=== PATIENT | male | born 1965 | race Caucasian/White ===

== ENCOUNTER 2023-06-09 10:49 | Emergency (ER) | payer OTHER, MEDICAID, SELFPAY ==
[2023-06-09] VITALS (15 sets, daily range): BP systolic 166–201; BP diastolic 84–105; PULSE 74–118; RESP 14–22; TEMP 36.8; O2SAT 91–97; BMI 32.1
[2023-06-09 11:18] LABS: Add Manual Diff / Slide Review NO; Basophils Absolute Auto 0 /uL (0-100); Basophils Percent Auto 0.3 % (0-2); Eosinophils Absolute Auto 100 /uL (0-450); Eosinophils Percent Auto 1.6 % (2-4); Hemoglobin 13.6 g/dL (13.5-17.5); Lymphocytes Absolute Auto 1000 /uL (1100-4500); Lymphocytes Percent Auto 17.3 % (25-40); Mean Corpuscular Hemoglobin 36.4 PG (26-34); Mean Corpuscular Volume 104.1 fL (80-100); Monocytes Absolute Auto 700 /uL (0-900); Monocytes Percent Auto 10.9 % (3-14); Neutrophils Absolute Auto 4200 /uL (1500-7000); Neutrophils Percent Auto 69.9 % (50-75); Platelet Count 82 X10^3/uL (150-400); Red Blood Cell Count 3.74 X10^6/uL (4.5-5.9); Red Cell Distribution Width 15.2 % (11.6-14.8)
[2023-06-09 11:22] LABS: INR 1.4 (0.9-1.3); Prothrombin Time 15.7 SECONDS (9.4-12.5)
[2023-06-09 11:29] LABS: Alanine Aminotransferase 57 IU/L (<50); Albumin 3.8 g/dL (3.5-5.0); Albumin Globulin Ratio 0.7 (1.0-2.8); Alkaline Phosphatase 184 U/L (38-126); Aspartate Aminotransferase 267 IU/L (17-59); BUN Creatinine Ratio 14.9 (6-22); Bilirubin Total 5.9 mg/dL (0.2-1.3); Blood Urea Nitrogen 10 mg/dL (9-20); Calcium 8.5 mg/dL (8.4-10.2); Carbon Dioxide 25 mmol/L (22-32); Chloride 105 mmol/L (98-107); Estimated Glomerular Filt Rate > 60 mL/min (>60); Globulin 5.8 g/dL (1.7-4.1); Glucose 139 mg/dL (70-100); Lipase 447 U/L (23-300); Sodium 141 mmol/L (137-145); Total Protein 9.6 g/dL (6.3-8.2)
[2023-06-09 11:33] LABS: HEMOLYSIS 84 (0-50); Potassium 4.1 mmol/L (3.4-5.1)
--- NOTE | 2023-06-09 11:42 | ED.ABDPAIN ---
HPI - Abdominal Pain General Chief Complaint: Abdominal Pain Stated Complaint: abd problems sent by pcp Time Seen by Provider: 06/09/23 11:27 Source: patient and family Mode of arrival: Ambulatory History of Present Illness HPI narrative: This is a 58-year-old male with chronic alcohol use who presents with complaint of swelling of his belly for the past 2 weeks although he states he really noticed the past several days it is very tight and uncomfortable. Patient denies fevers or chills. No swelling of face or extremities. He denies any chest pain or pressure, no shortness of breath. Denies any nausea or vomiting. States he has been little bit constipated for the past 2 days, no black or bloody stools. No urinary symptoms. Patient is not on any daily prescriptions, no prior surgeries. No known drug allergies. Quit tobacco a year ago, does drink at least 3 alcoholic drinks daily and was drinking more until recently. No recreational drugs. Is not established with primary care physician. Lives on [facility] for the past 6 months. Patient is accompanied by his . Patient states he does not believe he is immunized for hepatitis, he denies any regular Tylenol use or other ingestions. Related Data Home Medications Medication Instructions Recorded Confirmed No Known Home Medications 06/10/23 06/10/23 Allergies Allergy/AdvReac Type Severity Reaction Status Date / Time No Known Drug Allergies Allergy Verified 06/10/23 07:35 Review of Systems Review of Systems ROS Unobtainable: All systems reviewed & are unremarkable except as noted in HPI and below Patient History Medical History (Updated 06/10/23 @ 17:23 by Katey Foster PA-C) Allergies Substance abuse Depression Cirrhosis Alcohol use Anxiety Tachycardia Hypertension Social History Smoking Status: Former smoker (Chewed tobacco, but quit in 2022. ) Smoking Status: Former smoker alcohol intake frequency: 3 or more drinks per day Alcohol type: hard liquor Substance Use Type: does not use Exam Narrative Exam Narrative: GENERAL: Alert and oriented x three, male in mild distress. Patient appears jaundiced. HEENT: Head normocephalic, atraumatic, EOMI, slight scleral icterus, eyes are bloodshot, pupils reactive, face symmetric, moist mucous membranes NECK: Supple, full range of motion CARDIOVASCULAR: Regular rate and rhythm without murmurs, rubs or gallops. RESPIRATORY: Breath sounds equal bilaterally, no wheezes rales or rhonchi. ABDOMEN: Soft, nontender, patient is quite distended with fluid wave.. Normoactive bowel sounds all 4 quadrants. No guarding or rebound, rigidity, no mass : No CVA tenderness EXTREMITIES: Normal range of motion, no clubbing, no edema. Neurovascularly intact NEUROLOGICAL: Cranial nerves II through XII grossly intact. Moving all extremities SKIN: Warm, dry, no petechiae, no rashes or lesions. Initial Vital Signs Initial Vital Signs: Vital Signs Pulse Oximetry 92 06/09/23 10:55 Course Orders Ordered: Discontinued Medications Ondansetron HCl (Ondansetron 4 Mg Odt) 4 mg PO NOW PRN PRN Reason: Nausea And Vomiting Ondansetron HCl (Ondansetron 4 Mg/2 Ml Inj) 4 mg IV NOW PRN PRN Reason: Nausea And Vomiting Vital Signs Vital signs: Vital Signs - 8 hr 06/09/23 10:55 06/09/23 10:56 06/09/23 10:56 Temperature Pulse Rate 117 H Respiratory Rate Blood Pressure 166/105 H Pulse Oximetry 92 95 Oxygen Delivery Method 06/09/23 11:00 06/09/23 11:01 06/09/23 11:30 Temperature 98.3 F Pulse Rate 113 H 118 H 101 H Respiratory Rate 14 22 Blood Pressure 166/105 H Pulse Oximetry 96 95 95 Oxygen Delivery Method Room Air 06/09/23 11:30 06/09/23 12:00 06/09/23 12:00 Temperature Pulse Rate 100 H Respiratory Rate Blood Pressure 185/104 H 173/99 H Pulse Oximetry 96 Oxygen Delivery Method 06/09/23 12:34 06/09/23 12:35 06/09/23 12:35 Temperature Pulse Rate 99 H 101 H Respiratory Rate Blood Pressure 179/103 H Pulse Oximetry 91 97 Oxygen Delivery Method 06/09/23 13:00 06/09/23 13:00 Temperature Pulse Rate 99 H Respiratory Rate Blood Pressure 185/94 H Pulse Oximetry 96 Oxygen Delivery Method MDM - Abdominal Pain Lab Data 06/09/23 11:05 06/09/23 11:05 Labs: Lab Results 06/09/23 Range/Units 11:05 WBC 6.0 (4.5-11.0) X10^3/uL RBC 3.74 L (4.5-5.9) X10^6/uL Hgb 13.6 (13.5-17.5) g/dL Hct 39.0 L (41-53) % MCV 104.1 H (80-100) fL MCH 36.4 H (26-34) PG MCHC 35.0 (30-36) % RDW 15.2 H (11.6-14.8) % Plt Count 82 L (150-400) X10^3/uL Neut % (Auto) 69.9 (50-75) % Lymph % (Auto) 17.3 L (25-40) % Hunt % (Auto) 10.9 (3-14) % Eos % (Auto) 1.6 L (2-4) % Baso % (Auto) 0.3 (0-2) % Neut # (Auto) 4200 (6218-4789) /uL Lymph # (Auto) 1000 L (6680-7454) /uL Hunt # (Auto) 700 (0-900) /uL Eos # (Auto) 100 (0-450) /uL Baso # (Auto) 0 (0-100) /uL PT 15.7 H (9.4-12.5) SECONDS INR 1.4 H (0.9-1.3) Sodium 141 (137-145) mmol/L Potassium 4.1 (3.4-5.1) mmol/L Chloride 105 (98-107) mmol/L Carbon Dioxide 25 (22-32) mmol/L BUN 10 (9-20) mg/dL Creatinine 0.67 (0.66-1.25) mg/dL Estimated GFR > 60 (>60) mL/min BUN/Creatinine Ratio 14.9 (6-22) Glucose 139 H (70-100) mg/dL Calcium 8.5 (8.4-10.2) mg/dL Total Bilirubin 5.9 H (0.2-1.3) mg/dL AST 267 H (17-59) IU/L ALT 57 H (<50) IU/L Alkaline Phosphatase 184 H (38-126) U/L Total Protein 9.6 H (6.3-8.2) g/dL Albumin 3.8 (3.5-5.0) g/dL Globulin 5.8 H (1.7-4.1) g/dL Albumin/Globulin Ratio 0.7 L (1.0-2.8) Lipase 447 H (23-300) U/L Acetaminophen < 10 (10-30) ug/mL Ethyl Alcohol 190 H ( - 10) mg/dL Hepatitis A IgM Ab Negative (Negative) Hep Bs Antigen Negative (Negative) Hep B Core IgM Ab Negative (Negative) Hepatitis C Antibody Non reactive (Non Reactive) Hep C Ab Signal/Cutoff Comment (.) Imaging Data Abdominal x-ray: Radiologist's Impression: [facility] , XRay Report Signed Patient: Twin Petty MR#: [id number] : 1965 Acct:[id number] Age/Sex: 58 / M Date of Service: 06/08/23 [facility] Accession Number: [id number] Procedure: XR abdomen 1V Ordering Provider: Katey Foster P.A-C PROCEDURE: XR ABDOMEN 1V INDICATIONS: Bloating TECHNIQUE: One view of the abdomen acquired. COMPARISON: None. FINDINGS: Surgical changes and devices: None. Bowel: Bowel gas pattern is normal. Normal colonic stool load. Soft tissues: No suspicious abdominal calcifications. Visualized solid organ contours appear normal in size. Bones: No suspicious bony lesions. IMPRESSION: No acute abnormality. Dictated by: Fercho Petty M.D. on 06/08/2023 at 15:49 Approved by: Fercho Petty M.D. on 06/08/2023 at 15:49 CT scan - abdomen/pelvis: Radiologist's Impression: [place] [address] CT Scan Report Signed Patient: Twin Petty MR#: [id number] : 1965 Acct:[id number] Age/Sex: 58 / M Date of Service: 06/09/23 Loc: ED Accession Number: [id number] Procedure: CT abdomen pelvis w con Ordering Provider: Emily Martines D.O. PROCEDURE: CT ABDOMEN PELVIS W CON INDICATIONS: ascites, liver failure, no prior diagnosis TECHNIQUE: After the administration of intravenous contrast, axial sections acquired from the lung bases to the pubic symphysis. Coronal and sagittal reformats were performed. For radiation dose reduction, the following was used: automated exposure control, adjustment of mA and/or kV according to patient size. COMPARISON: None. FINDINGS: Image quality: Diagnostic. Lower Chest: Right lower lobe linear subsegmental atelectasis/scar. Left lower lobe compressive atelectasis. Small left pleural effusion. Partially visualized marked three-vessel coronary calcifications. ABDOMEN: Liver: Cirrhotic liver morphology with nodular contour. Heterogeneous appearance of the parenchyma with innumerable tiny hypodensities. Patent portal vein. Gallbladder: No radiopaque gallstones or wall thickening. Biliary ducts: No biliary dilation. Pancreas: No ductal dilation. Spleen: Mild splenomegaly measuring 14.6 cm in craniocaudal dimension. Adrenal Glands: No adrenal nodules. Kidneys and Ureters: No hydronephrosis. No solid mass. No complex renal cystic lesion which requires follow up. Stomach and Bowel: No hiatal hernia. Stomach appears grossly normal. Small and large bowel is normal in caliber, without obstruction. Wall thickening of the colon, notably in the ascending colon (2/71). Peritoneum: Moderate volume ascites. No free air. Ventral Wall: No significant ventral hernia. Abdominal Nodes: No retroperitoneal or mesenteric adenopathy by size criteria. Vessels: Aorta and inferior vena cava are normal in size. Patent splenic, bilateral renal and iliac vein. Mild calcification of the abdominal aorta. Proximal mesenteric vessels are patent. Recanalized paraumbilical vein and a few perigastric and perisplenic venous collaterals. PELVIS: Pelvic Organs: Unremarkable. Bladder: No bladder wall thickening, accounting for underdistention. Pelvic Nodes: No enlarged lymph nodes. Miscellaneous: Small bilateral fat containing inguinal hernias. Bones: No aggressive osseous abnormality. No acute fractures. IMPRESSION: 1. Cirrhotic liver morphology with stigmata of portal hypertension including splenomegaly, upper abdominal varices and moderate volume ascites. 2. Hepatic parenchyma demonstrates heterogeneous appearance with innumerable tiny hypodensities. Differential includes micronodular cirrhosis versus infiltrative malignancy. Recommend correlation with AFP and an MRI (liver mass protocol) for further evaluation. 3. Nonobstructive bowel. Colonic wall thickening, notably in the ascending colon, suggestive of portal hypertensive colopathy. 4. Small left pleural effusion with compressive atelectasis. 5. Partially visualized marked three-vessel coronary calcifications. Dictated by: Thomas Coleman M.D. on 06/09/2023 at 13:57 Approved by: Thomas Coleman M.D. on 06/09/2023 at 14:04 ECG Data Attestation: I personally reviewed and interpreted this ECG as follows: Prior ECG tracings: not available for review Interpretation: Sinus rhythm rate of 100 FL 156 QRS 88 QTC of 474. No acute ST elevation or depression noted. No priors for comparison. MDM Narrative Medical decision making narrative: This is a 58-year-old with chronic alcohol use who has a exam consistent with liver failure. Lab workup shows white count of 6, hemoglobin of 13.6, platelets of 82, patient's INR is 1.4. Creatinine is normal at 0.67 with a BUN of 10, glucose is 139 sodium is 141 with potassium of 4.1, chloride of 105 and a CO2 of 25. Bilirubin is elevated at 5.9, AST is 267, ALT is 57 with alk-phos of 184, lipase of 447. Patient had abdominal x-ray on [facility] which was negative. MELD score of 17 points with 6% mortality Patient also had hepatitis panel added on which will not be completed today as well as alcohol and Tylenol level. Plan suspect alcohol is the main source of his cirrhosis but patient states he was never immunized her hepatitis does not sound like he has ever had any evaluation for it. CT abdomen pelvis was obtained shows cirrhotic liver morphology with nodular contour heterogeneous appearance with innumerable tiny hypodensities and patent portal vein. Mild splenomegaly measuring 14.6 0.6 cm in craniocaudal dimension. Patient has stigmata of portal hypertension including splenomegaly upper abdominal varices and moderate volume ascites. Colonic wall thickening notably ascending colon suggestive of portal hypertensive colopathy. Small left pleural effusions with a compressive atelectasis. Partially visualized three-vessel coronary calcifications. Discussed with patient and family need for follow-up, alcohol sensation, resources . EMPLOYMENT SUPERVISOR offered to help with follow-up/primary care and resources for alcohol sensation. Reviewed findings with patient and family, need for follow up. Discharge Plan Departure Patient Disposition: Home Clinical Impression: Cirrhosis Qualifiers: Hepatic cirrhosis type: unspecified hepatic cirrhosis Ascites presence: with ascites Qualified Code(s): K74.60 - Unspecified cirrhosis of liver Instructions: DI for Cirrhosis Activity Restrictions/Additional Instructions: Follow up with primary care and Gastroenterology. Contact for Gastroenterology is included below. You can follow up with anyone from the group. Your imaging does show cirrhotic changes in a moderate amount of fluid or ascites but also shows some small spots this means follow up with an alpha fetoprotein and further evaluation with Gastroenterology. Alcohol cessation is the most helpful thing you can do to decrease/stop damage to your liver. Avoid Tylenol or acetaminophen. You do have a hepatitis panel still pendingand afp pending this needs to be followed up. They may wish to get an MR of your liver in the future. Please return for fevers, abdominal pain or chest pain, shortness of breath, passing out, increasing swelling in your extremities or other new or concerning changes. Prescriptions: No Action No Known Home Medications Referrals: Trevin Frye MD [Non-Staff] - Katey Foster PA-C [Primary Care Provider] - Stand Alone Forms: Patient Portal/API
--- NOTE | 2023-06-09 12:00 | DI.CT.S_ITS ---
PROCEDURE: CT ABDOMEN PELVIS W CON INDICATIONS: ascites, liver failure, no prior diagnosis TECHNIQUE: After the administration of intravenous contrast, axial sections acquired from the lung bases to the pubic symphysis. Coronal and sagittal reformats were performed. For radiation dose reduction, the following was used: automated exposure control, adjustment of mA and/or kV according to patient size. COMPARISON: None. FINDINGS: Image quality: Diagnostic. Lower Chest: Right lower lobe linear subsegmental atelectasis/scar. Left lower lobe compressive atelectasis. Small left pleural effusion. Partially visualized marked three-vessel coronary calcifications. ABDOMEN: Liver: Cirrhotic liver morphology with nodular contour. Heterogeneous appearance of the parenchyma with innumerable tiny hypodensities. Patent portal vein. Gallbladder: No radiopaque gallstones or wall thickening. Biliary ducts: No biliary dilation. Pancreas: No ductal dilation. Spleen: Mild splenomegaly measuring 14.6 cm in craniocaudal dimension. Adrenal Glands: No adrenal nodules. Kidneys and Ureters: No hydronephrosis. No solid mass. No complex renal cystic lesion which requires follow up. Stomach and Bowel: No hiatal hernia. Stomach appears grossly normal. Small and large bowel is normal in caliber, without obstruction. Wall thickening of the colon, notably in the ascending colon (2/71). Peritoneum: Moderate volume ascites. No free air. Ventral Wall: No significant ventral hernia. Abdominal Nodes: No retroperitoneal or mesenteric adenopathy by size criteria. Vessels: Aorta and inferior vena cava are normal in size. Patent splenic, bilateral renal and iliac vein. Mild calcification of the abdominal aorta. Proximal mesenteric vessels are patent. Recanalized paraumbilical vein and a few perigastric and perisplenic venous collaterals. PELVIS: Pelvic Organs: Unremarkable. Bladder: No bladder wall thickening, accounting for underdistention. Pelvic Nodes: No enlarged lymph nodes. Miscellaneous: Small bilateral fat containing inguinal hernias. Bones: No aggressive osseous abnormality. No acute fractures. IMPRESSION: 1. Cirrhotic liver morphology with stigmata of portal hypertension including splenomegaly, upper abdominal varices and moderate volume ascites. 2. Hepatic parenchyma demonstrates heterogeneous appearance with innumerable tiny hypodensities. Differential includes micronodular cirrhosis versus infiltrative malignancy. Recommend correlation with AFP and an MRI (liver mass protocol) for further evaluation. 3. Nonobstructive bowel. Colonic wall thickening, notably in the ascending colon, suggestive of portal hypertensive colopathy. 4. Small left pleural effusion with compressive atelectasis. 5. Partially visualized marked three-vessel coronary calcifications. Dictated by: Thomas Coleman M.D. on 06/09/2023 at 13:57 Approved by: Thomas Coleman M.D. on 06/09/2023 at 14:04
[2023-06-09 12:13] LABS: Acetaminophen < 10 ug/mL (10-30); Ethanol (ETOH) 190 mg/dL
--- NOTE | 2023-06-09 15:10 | CM.SWNOTE ---
ED [employer]BLE INSTALLER Note Pt is a 58 y/o male who live son [facility] w/ his partner. Pt presents to the ed at the recommendation of his PCP for ABD pain and distention. Pt and partner both report to being a heavy alcohol users. Pt's partner (Shefali) was in the room w/ pt during interaction. Pt reports that he typically has his first drink between 2-4 pm and that this is a small vodka soda about 1/3 vodka to soda. Pt reports that it is a small Yeti tumbler that they use w/ large ice cubes inside. Pt reports that he first began drinking and experimenting w/ drugs when he was 14 w/ his brother. It's stupid now but I thought it was cool back then. Pt reported that he has severe anxiety and that vodka is the only thing that helps. It's the only thing I can do.. I've been prescribed anxiety meds that take 2 to 3 weeks to kick in and it makes it worse. Pt reports that he has seen a therapist in the past. They just hash up old shit. Pt, partner, and TI[employer] INSTALLER discussed other therapy/counseling options that could be a better fit. Pt and partner agreed to look into a therapist. Both pt and partner are open to reducing drinking. I can cut back but I don't have to stop.. I don't want AA or any groups. Pt's partner is supportive of making changes and establishing a therapist via telehealth. TILE AND MARBLE INSTALLER provided pt w/ mental health resources that accept his insurance. TILE AND MARBLE INSTALLER also provided [facility] resources. TILE AND MARBLE INSTALLER attempted to set up a ED follow up appointment but space at [facility] was not available. Nurse from [facility] to call pt directly to set up an appointment. Plan: Pt to d/c home w/ resources upon medical clearance. Flex Meza MSW, KANWAL
[2023-06-11 05:21] LABS: HBsAg Screen Negative (Negative); Hepatitis A Antibody IgM Negative (Negative); Hepatitis B Core Antibody IgM Negative (Negative); Hepatitis C Antibody Non Reactive (Non Reactive)
== END 2023-06-09 15:26 | disposition home or self-care (01) ==
PROVIDERS: Emergency Provider Emergency Medicine; PCP Physician Assistant Medical
DX: K70.31 Alcoholic cirrhosis of liver with ascites (principal)
CPT/HCPCS: 36415; 74177; 80053; 80074; 80320; 80329; 83690; 85025; 85610; 93005; 93010; 99283; 99284; G0480; Q9967

== ENCOUNTER → 2023-09-21 08:47 | Outpatient (CLI) | payer OTHER, MEDICAID, SELFPAY ==
[2023-09-21 19:49] LABS: Alanine Aminotransferase 22 IU/L (<50); Albumin 3.2 g/dL (3.5-5.0); Albumin Globulin Ratio 0.7 (1.0-2.8); Alkaline Phosphatase 124 U/L (38-126); Aspartate Aminotransferase 49 IU/L (17-59); BUN Creatinine Ratio 14.8 (6-22); Bilirubin Total 1.6 mg/dL (0.2-1.3); Blood Urea Nitrogen 12 mg/dL (9-20); Calcium 8.8 mg/dL (8.4-10.2); Carbon Dioxide 25 mmol/L (22-32); Chloride 109 mmol/L (98-107); Estimated Glomerular Filt Rate > 60 mL/min (>60); Gamma Glutamyl Transpeptidase 108 U/L (15-73); Globulin 4.4 g/dL (1.7-4.1); Glucose 122 mg/dL (70-100); HEMOLYSIS < 15 (0-50); Potassium 4.1 mmol/L (3.4-5.1); Sodium 139 mmol/L (137-145); Total Protein 7.6 g/dL (6.3-8.2)
[2023-09-21 19:54] LABS: Ammonia (NH3) 34 umol/L (9-30)
[2023-09-21 20:16] LABS: Add Manual Diff / Slide Review NO; Basophils Absolute Auto 100 /uL (0-100); Basophils Percent Auto 1.7 % (0-2); Eosinophils Absolute Auto 600 /uL (0-450); Eosinophils Percent Auto 8.7 % (2-4); Hematocrit 36.1 % (41-53); Hemoglobin 12.4 g/dL (13.5-17.5); Lymphocytes Absolute Auto 1700 /uL (1100-4500); Lymphocytes Percent Auto 25.7 % (25-40); Mean Corpuscular HGB Conc 34.4 % (30-36); Mean Corpuscular Hemoglobin 34.7 PG (26-34); Monocytes Absolute Auto 700 /uL (0-900); Monocytes Percent Auto 10.8 % (3-14); Neutrophils Absolute Auto 3400 /uL (1500-7000); Neutrophils Percent Auto 53.1 % (50-75); Platelet Count 105 X10^3/uL (150-400); Red Blood Cell Count 3.58 X10^6/uL (4.5-5.9); Red Cell Distribution Width 14.5 % (11.6-14.8); White Blood Cell Count 6.5 X10^3/uL (4.5-11.0)
[2023-09-21 20:26] LABS: TSH w/ Reflex to FT4 1.71 uIU/mL (0.47-4.68)
== END ==
PROVIDERS: PCP Physician Assistant Medical; Referring Provider Physician Assistant Medical; Visit Provider Physician Assistant Medical
DX: K74.60 Unspecified cirrhosis of liver (principal); T78.40XA Allergy, unspecified, initial encounter; I10 Essential (primary) hypertension; Z78.9 Other specified health status
CPT/HCPCS: 80053; 82140; 82977; 84443; 85025

== ENCOUNTER → 2023-12-08 15:23 | Outpatient (CLI) | payer OTHER, MEDICAID, SELFPAY | PROVIDERS: PCP Physician Assistant Medical; Visit Provider Physician Assistant Medical | DX: R21 Rash and other nonspecific skin eruption (principal) | CPT/HCPCS: 87070; 87075; 87205 ==

== ENCOUNTER 2025-01-31 04:24 | Emergency (ER) | payer OTHER, SELFPAY ==
[2025-01-31] VITALS (18 sets, daily range): BP systolic 167–207; BP diastolic 80–107; PULSE 91–112; RESP 11–24; TEMP 36.9; O2SAT 94–99; BMI 29.5
--- NOTE | 2025-01-31 04:35 | ED_ITS ---
HPI - General Adult
--- NOTE | 2025-01-31 04:35 | ED.GENADULT ---
HPI - General Adult General Chief complaint: Back Pain/Injury Stated complaint: Lower back pain Time Seen by Provider: 01/31/25 04:35 History of Present Illness HPI narrative: 60-year-old male with history of alcohol use, cirrhosis, anxiety, depression, gallstones, has low back pain for the last few days. Has regular lifting as part of his job but no specific injury or new activities recalled. No numbness or weakness to his legs. No history of IVDU, known cancers, spinal surgery, spinal injections. Some nausea without vomiting, no black or red stools or loose stools. Denies fevers or chills. Denies painful or frequent urination.Denies cough, chest pain, shortness of breath. Related Data Previous Rx's ?Medication ?Instructions ?Recorded ciprofloxacin HCl 500 mg tablet 500 mg PO BID 10 days #20 tabs 01/31/25 metronidazole 500 mg tablet 500 mg PO TID #30 tabs 01/31/25 oxycodone 5 mg capsule 5 mg PO TID PRN pain #10 caps 01/31/25 Allergies Allergy/AdvReac Type Severity Reaction Status Date / Time No Known Drug Allergies Allergy Verified 01/31/25 04:32 Patient History Medical History Cirrhosis Allergies Substance abuse Depression Anxiety Tachycardia Hypertension Social History Smoking Status: Never smoker alcohol intake frequency: 3 or more drinks per day Alcohol type: hard liquor Exam Narrative Exam Narrative: GENERAL: Well-developed patient, in mild distress. HEAD: Atraumatic. Normocephalic. EYES: Pupils equal round and reactive. Extraocular motions intact. No scleral icterus. No injection or drainage. ENT: Nose without bleeding, purulent drainage. Throat without erythema, tonsillar hypertrophy or exudate. Airway patent. NECK: Trachea midline. Non tender CARDIOVASCULAR: Regular rate and rhythm without murmurs, gallops, or rubs. RESPIRATORY: Clear to auscultation. Breath sounds equal bilaterally. No wheezes, rales, or rhonchi. GASTROINTESTINAL: Abdomen soft, non-tender, nondistended. EXTREMITIES: No edema or joint tenderness. BACK: Nontender without deformity or crepitance. No flank tenderness. No midline low back pain in area of discomfort. No skin changes redness swelling or vesicles. NEURO: AOx3. Motor functions grossly nonfocal. SKIN: No rash or erythema of visible areas Initial Vital Signs Initial Vital Signs: Vital Signs Temperature 98.4 F 01/31/25 04:33 Pulse Rate 100 H 01/31/25 04:33 Respiratory Rate 17 01/31/25 04:33 Blood Pressure 189/95 H 01/31/25 04:33 Pulse Oximetry 97 01/31/25 04:33 Oxygen Delivery Method Room Air 01/31/25 04:33 Course Orders Ordered: ED Orders 01/31/25 08:25 Complete Blood Count AUTO DIFF Stat Comprehensive Metabolic Panel Stat Lipase Stat PTT Partial Thromboplastin Edwin Stat Prothrombin Time INR Stat Type and Screen Stat 01/31/25 08:29 EKG-12 Lead Stat Discontinued Medications Diazepam (Diazepam 10 Mg/2 Ml Syringe) 5 mg IV NOW ONE Stop: 01/31/25 04:47 Last Admin: 01/31/25 05:00 Dose: 5 mg Documented By: Hydromorphone HCl (Hydromorphone Hcl 0.5 Mg/0.5 Ml Syringe) 0.5 mg IV NOW ONE Stop: 01/31/25 07:15 Last Admin: 01/31/25 07:20 Dose: 0.5 mg Documented By: ERICK Ciprofloxacin (Cipro) 400 mg in 200 mls @ 200 mls/hr IV NOW ONE Stop: 01/31/25 07:13 Last Infusion: 01/31/25 07:34 Dose: Infused Documented By: Admin: 01/31/25 06:34 Dose: 200 mls/hr Documented By: Sodium Chloride (Normal Saline 0.9%) 1,000 mls @ 1,000 mls/hr IV BOLUS ONE Stop: 01/31/25 07:39 Last Infusion: 01/31/25 08:00 Dose: Infused Documented By: Admin: 01/31/25 07:19 Dose: 1,000 mls/hr Documented By: ERICK Pantoprazole Sodium 80 mg/ (Sodium Chloride) 100 mls @ 400 mls/hr IV NOW ONE Stop: 01/31/25 08:43 Last Infusion: 01/31/25 09:36 Dose: Infused Documented By: Admin: 01/31/25 09:05 Dose: 400 mls/hr Documented By: SBF Octreotide Acetate 500 mcg/ (Sodium Chloride) 101 mls @ 10.1 mls/hr IV CONT DEEPA; Protocol Last Admin: 01/31/25 09:05 Dose: 50 mcg/hr, 10.1 mls/hr Documented By: SBF Sodium Chloride (Normal Saline 0.9%) 1,000 mls @ 1,000 mls/hr IV BOLUS ONE Stop: 01/31/25 09:28 Last Infusion: 01/31/25 11:33 Dose: Infused Documented By: Admin: 01/31/25 09:26 Dose: 1,000 mls/hr Documented By: SBF Tranexamic Acid 1,000 mg/ (Sodium Chloride) 100 mls @ 200 mls/hr IV NOW ONE Stop: 01/31/25 10:55 Last Infusion: 01/31/25 11:32 Dose: Infused Documented By: Admin: 01/31/25 10:40 Dose: 200 mls/hr Documented By: SBF Sodium Chloride (Normal Saline 0.9%) 1,000 mls @ 250 mls/hr IV CONT DEEPA Methocarbamol (Methocarbamol 500 Mg Tablet) 500 mg PO NOW ONE Stop: 01/31/25 06:15 Last Admin: 01/31/25 06:22 Dose: Not Given Documented By: AB Metoclopramide HCl (Metoclopramide 10 Mg/2 Ml Inj) 10 mg IV NOW ONE Stop: 01/31/25 10:24 Last Admin: 01/31/25 10:35 Dose: 10 mg Documented By: SBF Metronidazole (Metronidazole 500 Mg Tablet) 500 mg PO NOW ONE Stop: 01/31/25 06:17 Last Admin: 01/31/25 06:34 Dose: 500 mg Documented By: AB Octreotide Acetate (Octreotide 100 Mcg/Ml Vial) 50 mcg IV NOW ONE Stop: 01/31/25 08:30 Last Admin: 01/31/25 09:06 Dose: 50 mcg Documented By: SBF Ondansetron HCl (Ondansetron 4 Mg/2 Ml Inj) 4 mg IV NOW ONE Stop: 01/31/25 07:15 Last Admin: 01/31/25 07:19 Dose: 4 mg Documented By: SGF Ondansetron HCl (Ondansetron 4 Mg/2 Ml Inj) 4 mg IV NOW ONE Stop: 01/31/25 08:31 Last Admin: 01/31/25 12:40 Dose: 4 mg Documented By: AUSTINF Vital Signs Vital signs: Vital Signs - 8 hr 01/31/25 07:30 01/31/25 07:30 01/31/25 08:00 Pulse Rate 103 H 98 H Respiratory Rate Blood Pressure 185/88 H Pulse Oximetry 94 95 01/31/25 08:00 01/31/25 08:30 01/31/25 08:30 Pulse Rate 101 H Respiratory Rate 15 Blood Pressure 180/84 H 167/84 H Pulse Oximetry 96 01/31/25 09:00 01/31/25 09:00 01/31/25 09:30 Pulse Rate 96 H 91 H Respiratory Rate 16 15 Blood Pressure 173/81 H Pulse Oximetry 96 99 01/31/25 09:30 01/31/25 10:00 01/31/25 10:00 Pulse Rate 97 H Respiratory Rate 16 Blood Pressure 177/82 H 174/82 H Pulse Oximetry 98 01/31/25 10:29 01/31/25 10:29 01/31/25 10:30 Pulse Rate 112 H 109 H Respiratory Rate 24 17 Blood Pressure 207/107 H Pulse Oximetry 98 98 01/31/25 10:30 01/31/25 10:35 01/31/25 10:35 Pulse Rate 107 H Respiratory Rate 18 Blood Pressure 198/96 H 188/92 H Pulse Oximetry 98 01/31/25 11:00 01/31/25 11:00 01/31/25 11:30 Pulse Rate 101 H 102 H Respiratory Rate 18 15 Blood Pressure 184/95 H Pulse Oximetry 96 97 01/31/25 11:30 01/31/25 12:00 01/31/25 12:00 Pulse Rate 104 H Respiratory Rate 16 Blood Pressure 179/100 H 191/94 H Pulse Oximetry 96 01/31/25 12:17 01/31/25 12:17 01/31/25 12:30 Pulse Rate 104 H 102 H Respiratory Rate 18 11 L Blood Pressure 173/104 H Pulse Oximetry 96 97 01/31/25 12:30 Pulse Rate Respiratory Rate Blood Pressure 182/97 H Pulse Oximetry Medical Decision Making Lab Data Lab results reviewed: Yes I reviewed the patient's lab results. Lab results narrative: White blood cell count 4600, hemoglobin 12.4, platelets 44785 mildly decreased. Glucose 124. Normal renal function, serum CO2, electrolytes. Mild AST elevation, other liver functions normal. Lipase normal. Urine dip positive for ketones, not obvious for infection. 01/31/25 08:25 01/31/25 08:25 Labs: Lab Results 01/31/25 01/31/25 Range/Units 04:57 08:25 WBC 4.6 7.3 D (4.5-11.0) X10^3/uL RBC 3.83 L 3.86 L (4.5-5.9) X10^6/uL Hgb 12.4 L 12.6 L (13.5-17.5) g/dL Hct 36.5 L 37.3 L (41-53) % MCV 95.1 96.5 (80-100) fL MCH 32.4 32.7 (26-34) PG MCHC 34.1 33.9 (30-36) % RDW 13.8 13.9 (11.6-14.8) % Plt Count 86 L 109 L (150-400) X10^3/uL Neut % (Auto) 49.4 L 41.1 L (50-75) % Lymph % (Auto) 37.3 46.4 H (25-40) % Bland % (Auto) 8.6 8.7 (3-14) % Eos % (Auto) 3.8 2.8 (2-4) % Baso % (Auto) 0.9 1.0 (0-2) % Neut # (Auto) 2300 3000 (0096-7195) /uL Lymph # (Auto) 1700 3400 (5229-7522) /uL Bland # (Auto) 400 600 (0-900) /uL Eos # (Auto) 200 200 (0-450) /uL Baso # (Auto) 0 100 (0-100) /uL PT 14.7 H 14.1 H (9.4-12.5) SECONDS INR 1.3 1.2 (0.9-1.3) APTT 30 (25.1-36.5) SECONDS Sodium 140 141 (137-145) mmol/L Potassium 4.3 3.7 (3.4-5.1) mmol/L Chloride 108 H 109 H (98-107) mmol/L Carbon Dioxide 25 21 L (22-32) mmol/L BUN 20 20 (9-20) mg/dL Creatinine 0.65 L 0.63 L (0.66-1.25) mg/dL Estimated GFR > 60 > 60 (>60) mL/min BUN/Creatinine Ratio 30.8 H 31.7 H (6-22) Glucose 124 H 116 H (70-99) mg/dL Calcium 8.6 8.4 (8.4-10.2) mg/dL Total Bilirubin 1.2 1.6 H (0.2-1.3) mg/dL AST 65 H 64 H (17-59) IU/L ALT 33 34 (<50) IU/L Alkaline Phosphatase 87 91 (38-126) U/L Total Protein 7.7 7.9 (6.3-8.2) g/dL Albumin 4.0 4.0 (3.5-5.0) g/dL Globulin 3.7 3.9 (1.7-4.1) g/dL Albumin/Globulin Ratio 1.1 1.0 (1.0-2.8) Lipase 116 131 (23-300) U/L Blood Type A Positive Antibody Screen Negative Urine Dip Bedside Urine Glucose Negative Bedside Urine Bilirubin - Negative Bedside Urine Ketone + 15 Urine Specific [place] 1.015 Bedside Urine Occult Blood +/- Bedside Urine pH 6.0 Bedside Urine Protein - Negative Bedside Urine Urobilinogen +/- 1mg Bedside Urine Nitrite - Negative Bedside Urine Leukocytes - Negative Esterase Point of care testing: Urine Dip Bedside Urine Glucose Negative Bedside Urine Bilirubin - Negative Bedside Urine Ketone + 15 Urine Specific [place]ellen 1.015 Bedside Urine Occult Blood +/- Bedside Urine pH 6.0 Bedside Urine Protein - Negative Bedside Urine Urobilinogen +/- 1mg Bedside Urine Nitrite - Negative Bedside Urine Leukocytes - Negative Esterase [facility] Narrative Medical decision making narrative: 60-year-old male with history of anxiety, depression, alcohol use, cirrhosis, gallstones, with nontraumatic low back pain, frequent lifting at work but no specific injury or new activities or increase in lifting or twisting activities. Midline low back pain. DDx consider compression vertebral body fracture, called strain lumbar, referred pain from abdominopelvic process, other. Labs pending. Patient we would like muscle relaxants. We will avoid NSAIDs, we will avoid IV Tylenol, he is reluctant to try opiates. Would like to try IV Valium when suggested as muscle relaxant. IV Valium order. Labs pending. Lab data: 0615, CT abdomen and pelvis. Impressions: ?cholelithiasis with mild gallbladder wall thickening and pericholecystic fatty haziness, concerning for developing acute cholecystitis, recommend gallbladder ultrasound. Mural thickening of ascending colon segment above ileocecal valve with the adjacent mild fatty stranding, concern for acute colitis, recommend follow up to ensure resolution and to exclude underlying lesion. Cirrhotic liver with suggestive of portal hypertension, heterogeneous attenuation of liver parenchyma could be related to cirrhosis, hepatic lesion needs to be excluded, recommend outpatient liver MRI. See tele radiology report. Ascending colitis described on CT abdomen/pelvis, will start IV ciprofloxacin with oral metronidazole antibiotic coverage. Thickening and fluid suspected around gallbladder, with cholelithiasis, patient without obvious right upper quadrant discomfort or right flank pain area discomfort, we will further delineate with right upper quadrant ultrasound. Sono tech verbal report, gallstones present, not obviously thickened and without obvious fluid. Sono tech verbal report, await Radiology report. Ultrasound gallbladder, gallstones present, no gallbladder wall thickening or fluid present. See radiology report. 0700, Trial of outpatient treatment colitis with further antibiotics ciprofloxacin and Flagyl. Patient encouraged to avoid alcohol due to emesis side effect with metronidazole/Flagyl. Prescription for ciprofloxacin and Flagyl 10 day course sent to his pharmacy. Encouraged to follow up with his regular doctor in the next couple of days. Return precautions discussed. Discharged home with . Discharge Plan Departure Patient Disposition: [facility] Clinical Impression: Colitis, Cholelithiasis, Low back pain, Esophageal varices, Hematemesis Activity Restrictions/Additional Instructions: Low back pain without tenderness on examination, possibly referred pain from abdominopelvic process. CT abdomen and pelvis was performed, showed colitis of the ascending colon, with that might be the cause of referred pain to the back. IV and oral antibiotics initiated. There was some CT mention of possible gallstones with thickened gallbladder and pericholecystic fluid, ultrasound was advised. Ultrasound did confirm the presence of gallstones, but did not seem to show any thickening of the gallbladder wall, nor any pericholecystic fluid suggestive of acute infection of the gallbladder at this time. Further treatment as an outpatient for now, consider further ciprofloxacin metronidazole antibiotic, 10 day course prescription sent to your requested pharmacy. It is important to avoid any alcohol use with metronidazole, as this combination can induce vomiting. Oxycodone prescription without Tylenol (for avoidance of Tylenol/acetaminophen due to your cirrhosis history). Recheck advised with your regular doctor in the next couple of days. Return to this/nearest emergency department for any change worsening symptoms or any concerns prior. Gallstones known, not obviously cause of your low back pain today, could consider outpatient surgical consultation if surgical removal of the gallbladder is desired in the future. Discuss further with your regular doctor. Prescriptions: New ciprofloxacin HCl 500 mg tablet 500 mg PO BID 10 Days Qty: 20 0RF metronidazole 500 mg tablet 500 mg PO TID Qty: 30 0RF oxycodone 5 mg capsule 5 mg PO TID PRN (Reason: pain) Qty: 10 0RF Referrals: Sheeba Lora DO [Primary Care Provider, Family Practice] Stand Alone Forms: Patient Portal/API
--- NOTE | 2025-01-31 04:47 | DI.CT.S_ITS ---
PROCEDURE: CT ABDOMEN PELVIS W CON
[2025-01-31 05:02] LABS: Add Manual Diff / Slide Review NO; Hematocrit 36.5 % (41-53); Hemoglobin 12.4 g/dL (13.5-17.5); Lymphocytes Absolute Auto 1700 /uL (1100-4500); Mean Corpuscular HGB Conc 34.1 % (30-36); Mean Corpuscular Hemoglobin 32.4 PG (26-34); Mean Corpuscular Volume 95.1 fL (80-100); Platelet Count 86 X10^3/uL (150-400)
[2025-01-31 05:20] LABS: INR 1.3 (0.9-1.3); Prothrombin Time 14.7 SECONDS (9.4-12.5)
[2025-01-31 05:24] LABS: Alanine Aminotransferase 33 IU/L (<50); Albumin 4.0 g/dL (3.5-5.0); Albumin Globulin Ratio 1.1 (1.0-2.8); Alkaline Phosphatase 87 U/L (38-126); Blood Urea Nitrogen 20 mg/dL (9-20); Calcium 8.6 mg/dL (8.4-10.2); Carbon Dioxide 25 mmol/L (22-32); Chloride 108 mmol/L (98-107); Estimated Glomerular Filt Rate > 60 mL/min (>60); Globulin 3.7 g/dL (1.7-4.1); Glucose 124 mg/dL (70-99); HEMOLYSIS < 15 (0-50); Lipase 116 U/L (23-300); Potassium 4.3 mmol/L (3.4-5.1); Sodium 140 mmol/L (137-145); Total Protein 7.7 g/dL (6.3-8.2)
--- NOTE | 2025-01-31 06:21 | DI.US.S_ITS ---
PROCEDURE: US ABDOMEN LIMITED
[2025-01-31] MEDS: CIPROFLOXACIN 400 MG/200 ML PIGGYBACK 200 MG IV (06:34)
[2025-01-31] MEDS: SODIUM CHLORIDE 0.9% 1,000 ML 1000 ML IV ×2 (07:19→09:26)
[2025-01-31] MEDS: ONDANSETRON 4 MG/2 ML INJ IV ×2 (07:19→12:40)
--- NOTE | 2025-01-31 08:29 | ED_ITS ---
HPI - General Adult
--- NOTE | 2025-01-31 08:29 | EKG_ITS ---
[facility]
--- NOTE | 2025-01-31 08:29 | PC.NURSE ---
after pt discharge pt ambulated to bathroom in er with - pt began vomiting large dark red clots in moderate quantity - provider made aware and patient taken to room - iv restarted and new labs sent pt reports having bleeding from varices 2-3 months ago
--- NOTE | 2025-01-31 08:29 | ED.GENADULT ---
HPI - General Adult General Chief complaint: Back Pain/Injury Stated complaint: Lower back pain Time Seen by Provider: 01/31/25 04:35 Source: patient and old records reviewed Mode of arrival: Ambulatory Limitations: no limitations History of Present Illness HPI narrative: 60-year-old male with a history of alcohol use, cirrhosis, known varices, anxiety, depression and gallstones who was seen here tonight for low back pain. Was discharged home but was in the bathroom when he threw up bright red blood and clots. He states he was not having any bloody emesis before this. He states last time he had that happened was about 3 months ago. He is feeling sweaty he denies chest pain or shortness of breath he denies any syncope or dizziness currently. He denies any abdominal pain. Still has a little bit of low back pain. Denies any black or bloody stools recently no diarrhea or constipation. No urinary symptoms. He states that he has taken aspirin for the last 3 days but does not normally take any anticoagulants. Patient states he is not on any daily medications. He states he has not had any prior surgeries he has had an EGD but never had banding of his varices. Patient does follow up with Gastroenterology at [facility]. He denies any allergies to medications. He denies tobacco, does drink alcohol, denies any recreational drugs. Dr. Lora is his primary care physician. He is accompanied by his . Related Data Previous Rx's ?Medication ?Instructions ?Recorded ciprofloxacin HCl 500 mg tablet 500 mg PO BID 10 days #20 tabs 01/31/25 metronidazole 500 mg tablet 500 mg PO TID #30 tabs 01/31/25 oxycodone 5 mg capsule 5 mg PO TID PRN pain #10 caps 01/31/25 Allergies Allergy/AdvReac Type Severity Reaction Status Date / Time No Known Drug Allergies Allergy Verified 01/31/25 04:32 Review of Systems Review of Systems ROS Unobtainable: All systems reviewed & are unremarkable except as noted in HPI and below Patient History Medical History Cirrhosis Allergies Substance abuse Depression Anxiety Tachycardia Hypertension Social History Smoking Status: Never smoker Smoking Status: Never smoker alcohol intake frequency: 3 or more drinks per day Alcohol type: hard liquor Exam Narrative Exam Narrative: GENERAL: Alert and oriented x three, diaphoretic male in moderate distress HEENT: Head normocephalic, atraumatic, EOMI, pupils reactive, face symmetric, moist mucous membranes NECK: Supple, full range of motion CARDIOVASCULAR: Tachycardic but Regular rate and rhythm without murmurs, rubs or gallops. No JVD. No edema. RESPIRATORY: Breath sounds equal bilaterally, no wheezes rales or rhonchi. No tachypnea accessory muscle use. ABDOMEN: Soft, nontender. Nondistended. Normoactive bowel sounds all 4 quadrants. No guarding or rebound, rigidity, no mass : No CVA tenderness EXTREMITIES: Normal range of motion, no clubbing or edema. Neurovascularly intact NEUROLOGICAL: Cranial nerves II through XII grossly intact. Moving all extremities SKIN: Warm, dry, no petechiae, no rashes or lesions. Initial Vital Signs Initial Vital Signs: Vital Signs Temperature 98.4 F 01/31/25 04:33 Pulse Rate 100 H 01/31/25 04:33 Respiratory Rate 17 01/31/25 04:33 Blood Pressure 189/95 H 01/31/25 04:33 Pulse Oximetry 97 01/31/25 04:33 Oxygen Delivery Method Room Air 01/31/25 04:33 Course Orders Ordered: Discontinued Medications Diazepam (Diazepam 10 Mg/2 Ml Syringe) 5 mg IV NOW ONE Stop: 01/31/25 04:47 Last Admin: 01/31/25 05:00 Dose: 5 mg Documented By: AB Hydromorphone HCl (Hydromorphone Hcl 0.5 Mg/0.5 Ml Syringe) 0.5 mg IV NOW ONE Stop: 01/31/25 07:15 Last Admin: 01/31/25 07:20 Dose: 0.5 mg Documented By: SGF Ciprofloxacin (Cipro) 400 mg in 200 mls @ 200 mls/hr IV NOW ONE Stop: 01/31/25 07:13 Last Infusion: 01/31/25 07:34 Dose: Infused Documented By: Admin: 01/31/25 06:34 Dose: 200 mls/hr Documented By: AB Sodium Chloride (Normal Saline 0.9%) 1,000 mls @ 1,000 mls/hr IV BOLUS ONE Stop: 01/31/25 07:39 Last Infusion: 01/31/25 08:00 Dose: Infused Documented By: Admin: 01/31/25 07:19 Dose: 1,000 mls/hr Documented By: SGF Pantoprazole Sodium 80 mg/ (Sodium Chloride) 100 mls @ 400 mls/hr IV NOW ONE Stop: 01/31/25 08:43 Last Infusion: 01/31/25 09:36 Dose: Infused Documented By: Admin: 01/31/25 09:05 Dose: 400 mls/hr Documented By: SBF Octreotide Acetate 500 mcg/ (Sodium Chloride) 101 mls @ 10.1 mls/hr IV CONT DEEPA; Protocol Last Admin: 01/31/25 09:05 Dose: 50 mcg/hr, 10.1 mls/hr Documented By: SBF Sodium Chloride (Normal Saline 0.9%) 1,000 mls @ 1,000 mls/hr IV BOLUS ONE Stop: 01/31/25 09:28 Last Infusion: 01/31/25 11:33 Dose: Infused Documented By: Admin: 01/31/25 09:26 Dose: 1,000 mls/hr Documented By: SBF Tranexamic Acid 1,000 mg/ (Sodium Chloride) 100 mls @ 200 mls/hr IV NOW ONE Stop: 01/31/25 10:55 Last Infusion: 01/31/25 11:32 Dose: Infused Documented By: Admin: 01/31/25 10:40 Dose: 200 mls/hr Documented By: SBF Sodium Chloride (Normal Saline 0.9%) 1,000 mls @ 250 mls/hr IV CONT DEEPA Methocarbamol (Methocarbamol 500 Mg Tablet) 500 mg PO NOW ONE Stop: 01/31/25 06:15 Last Admin: 01/31/25 06:22 Dose: Not Given Documented By: AB Metoclopramide HCl (Metoclopramide 10 Mg/2 Ml Inj) 10 mg IV NOW ONE Stop: 01/31/25 10:24 Last Admin: 01/31/25 10:35 Dose: 10 mg Documented By: SBF Metronidazole (Metronidazole 500 Mg Tablet) 500 mg PO NOW ONE Stop: 01/31/25 06:17 Last Admin: 01/31/25 06:34 Dose: 500 mg Documented By: AB Octreotide Acetate (Octreotide 100 Mcg/Ml Vial) 50 mcg IV NOW ONE Stop: 01/31/25 08:30 Last Admin: 01/31/25 09:06 Dose: 50 mcg Documented By: SBF Ondansetron HCl (Ondansetron 4 Mg/2 Ml Inj) 4 mg IV NOW ONE Stop: 01/31/25 07:15 Last Admin: 01/31/25 07:19 Dose: 4 mg Documented By: SGF Ondansetron HCl (Ondansetron 4 Mg/2 Ml Inj) 4 mg IV NOW ONE Stop: 01/31/25 08:31 Last Admin: 01/31/25 12:40 Dose: 4 mg Documented By: SBF Vital Signs Vital signs: Vital Signs - 8 hr 01/31/25 10:35 01/31/25 10:35 01/31/25 11:00 Pulse Rate 107 H Respiratory Rate 18 Blood Pressure 188/92 H 184/95 H Pulse Oximetry 98 01/31/25 11:00 01/31/25 11:30 01/31/25 11:30 Pulse Rate 101 H 102 H Respiratory Rate 18 15 Blood Pressure 179/100 H Pulse Oximetry 96 97 01/31/25 12:00 01/31/25 12:00 01/31/25 12:17 Pulse Rate 104 H 104 H Respiratory Rate 16 18 Blood Pressure 191/94 H Pulse Oximetry 96 96 01/31/25 12:17 01/31/25 12:30 01/31/25 12:30 Pulse Rate 102 H Respiratory Rate 11 L Blood Pressure 173/104 H 182/97 H Pulse Oximetry 97 Medical Decision Making Lab Data 01/31/25 08:25 01/31/25 08:25 Labs: Lab Results 01/31/25 01/31/25 Range/Units 04:57 08:25 WBC 4.6 7.3 D (4.5-11.0) X10^3/uL RBC 3.83 L 3.86 L (4.5-5.9) X10^6/uL Hgb 12.4 L 12.6 L (13.5-17.5) g/dL Hct 36.5 L 37.3 L (41-53) % MCV 95.1 96.5 (80-100) fL MCH 32.4 32.7 (26-34) PG MCHC 34.1 33.9 (30-36) % RDW 13.8 13.9 (11.6-14.8) % Plt Count 86 L 109 L (150-400) X10^3/uL Neut % (Auto) 49.4 L 41.1 L (50-75) % Lymph % (Auto) 37.3 46.4 H (25-40) % [place] % (Auto) 8.6 8.7 (3-14) % Eos % (Auto) 3.8 2.8 (2-4) % Baso % (Auto) 0.9 1.0 (0-2) % Neut # (Auto) 2300 3000 (6991-3606) /uL Lymph # (Auto) 1700 3400 (0324-6085) /uL [place] # (Auto) 400 600 (0-900) /uL Eos # (Auto) 200 200 (0-450) /uL Baso # (Auto) 0 100 (0-100) /uL PT 14.7 H 14.1 H (9.4-12.5) SECONDS INR 1.3 1.2 (0.9-1.3) APTT 30 (25.1-36.5) SECONDS Sodium 140 141 (137-145) mmol/L Potassium 4.3 3.7 (3.4-5.1) mmol/L Chloride 108 H 109 H (98-107) mmol/L Carbon Dioxide 25 21 L (22-32) mmol/L BUN 20 20 (9-20) mg/dL Creatinine 0.65 L 0.63 L (0.66-1.25) mg/dL Estimated GFR > 60 > 60 (>60) mL/min BUN/Creatinine Ratio 30.8 H 31.7 H (6-22) Glucose 124 H 116 H (70-99) mg/dL Calcium 8.6 8.4 (8.4-10.2) mg/dL Total Bilirubin 1.2 1.6 H (0.2-1.3) mg/dL AST 65 H 64 H (17-59) IU/L ALT 33 34 (<50) IU/L Alkaline Phosphatase 87 91 (38-126) U/L Total Protein 7.7 7.9 (6.3-8.2) g/dL Albumin 4.0 4.0 (3.5-5.0) g/dL Globulin 3.7 3.9 (1.7-4.1) g/dL Albumin/Globulin Ratio 1.1 1.0 (1.0-2.8) Lipase 116 131 (23-300) U/L Blood Type A Positive Antibody Screen Negative Urine Dip Bedside Urine Glucose Negative Bedside Urine Bilirubin - Negative Bedside Urine Ketone + 15 Urine Specific [place] 1.015 Bedside Urine Occult Blood +/- Bedside Urine pH 6.0 Bedside Urine Protein - Negative Bedside Urine Urobilinogen +/- 1mg Bedside Urine Nitrite - Negative Bedside Urine Leukocytes - Negative Esterase Point of care testing: Urine Dip Bedside Urine Glucose Negative Bedside Urine Bilirubin - Negative Bedside Urine Ketone + 15 Urine Specific [place] 1.015 Bedside Urine Occult Blood +/- Bedside Urine pH 6.0 Bedside Urine Protein - Negative Bedside Urine Urobilinogen +/- 1mg Bedside Urine Nitrite - Negative Bedside Urine Leukocytes - Negative Esterase ECG Data Attestation: I personally reviewed and interpreted this ECG as follows: Prior ECG tracings: available for review Interpretation: Sinus rhythm occasional PVC rate of 100, IL 136 QRS of 90 QTC of 461. No acute ST-elevation patient does have a PVC. Nonspecific change. Patient has prior from 06/09/2023, nonspecific change. MDM Narrative Medical decision making narrative: 60-year-old male who is being seen here today for lower back pain but had hematemesis after he has been discharged here in the department bathroom. Does have a known history of varices has had a prior episode 3 months ago has not ever had banding. During his stay in the emergency department he had a right upper quadrant ultrasound that showed multiple gallstones no bladder wall thickening, negative for sonographic Gill sign or pericholecystic fluid. Night rad read from the CT abdomen pelvis that he had show cholelithiasis with mild gallbladder wall thickening pericholecystic fatty haziness, mural thickening ascending colon segment above ileocecal valve with the adjacent mild fatty stranding concerning for acute colitis, cirrhotic liver with suggestion of portal hypertension, heterogeneous attenuation of liver parenchyma could be related cirrhosis hepatic lesion needs to be excluded. He is slightly tachycardic, hypertensive. Labs were repeated initial hemoglobin from 5:00 a.m. this morning was 12.4 and platelets were 86, repeat hemoglobin Patient received Protonix, octreotide with drip, Zofran and fluids. Patient also received TXA and Reglan. Spoke with Dr. Wolff at 10:01 a.m., gastroenterology at [facility] he is happy to see the patient asked that we send him over keep him NPO and he will evaluate and plans to take for banding today. Waiting call back from hospitalist Jose F. Patient had a another episode of hematemesis here in the department. Was given dose of TXA additional dose of Reglan. Spoke with Dr. Reyes, hospitalist accepts for transfer to [facility] discussed that he has a 2nd episode of emesis. Critical Care Time Critical Care Time Critical Care Time: Yes Total Critical Care Time: 40 Attestation: The high probability of a clinically significant, sudden or life threatening deterioration of the cardiac, pulmonary system(s) required my full and direct attention, intervention and personal management. The aggregate critical care time was [--] minutes. This time is in addition to time spent performing reported procedures but includes the following: [x] Data Review and interpretation [x] Patient assessment and monitoring of vital signs [x] Documentation [x] Medication orders and management Discharge Plan Departure Patient Disposition: [facility] Clinical Impression: Colitis, Cholelithiasis, Low back pain, Esophageal varices, Hematemesis Activity Restrictions/Additional Instructions: Low back pain without tenderness on examination, possibly referred pain from abdominopelvic process. CT abdomen and pelvis was performed, showed colitis of the ascending colon, with that might be the cause of referred pain to the back. IV and oral antibiotics initiated. There was some CT mention of possible gallstones with thickened gallbladder and pericholecystic fluid, ultrasound was advised. Ultrasound did confirm the presence of gallstones, but did not seem to show any thickening of the gallbladder wall, nor any pericholecystic fluid suggestive of acute infection of the gallbladder at this time. Further treatment as an outpatient for now, consider further ciprofloxacin metronidazole antibiotic, 10 day course prescription sent to your requested pharmacy. It is important to avoid any alcohol use with metronidazole, as this combination can induce vomiting. Oxycodone prescription without Tylenol (for avoidance of Tylenol/acetaminophen due to your cirrhosis history). Recheck advised with your regular doctor in the next couple of days. Return to this/nearest emergency department for any change worsening symptoms or any concerns prior. Gallstones known, not obviously cause of your low back pain today, could consider outpatient surgical consultation if surgical removal of the gallbladder is desired in the future. Discuss further with your regular doctor. Prescriptions: New ciprofloxacin HCl 500 mg tablet 500 mg PO BID 10 Days Qty: 20 0RF metronidazole 500 mg tablet 500 mg PO TID Qty: 30 0RF oxycodone 5 mg capsule 5 mg PO TID PRN (Reason: pain) Qty: 10 0RF Referrals: Sheeba Lora DO [Primary Care Provider, Family Practice] Stand Alone Forms: Patient Portal/API
--- NOTE | 2025-01-31 08:40 | PC.NURSE ---
pc tp pharmacy regarding protonix and octreotide drips after meds had been pulled - pharmacy states they will make the drips and to tube the medications to them at this time
[2025-01-31 08:41] LABS: Add Manual Diff / Slide Review NO; Hematocrit 37.3 % (41-53); Hemoglobin 12.6 g/dL (13.5-17.5); INR 1.2 (0.9-1.3); Lymphocytes Absolute Auto 3400 /uL (1100-4500); Mean Corpuscular HGB Conc 33.9 % (30-36); Mean Corpuscular Hemoglobin 32.7 PG (26-34); Mean Corpuscular Volume 96.5 fL (80-100); Platelet Count 109 X10^3/uL (150-400); Prothrombin Time 14.1 SECONDS (9.4-12.5)
[2025-01-31 08:44] LABS: PTT Partial Thromboplastin Tim 30 SECONDS (25.1-36.5)
[2025-01-31 08:45] LABS: Alanine Aminotransferase 34 IU/L (<50); Albumin 4.0 g/dL (3.5-5.0); Albumin Globulin Ratio 1.0 (1.0-2.8); Alkaline Phosphatase 91 U/L (38-126); Blood Urea Nitrogen 20 mg/dL (9-20); Calcium 8.4 mg/dL (8.4-10.2); Carbon Dioxide 21 mmol/L (22-32); Chloride 109 mmol/L (98-107); Estimated Glomerular Filt Rate > 60 mL/min (>60); Globulin 3.9 g/dL (1.7-4.1); Glucose 116 mg/dL (70-99); HEMOLYSIS < 15 (0-50); Lipase 131 U/L (23-300); Potassium 3.7 mmol/L (3.4-5.1); Sodium 141 mmol/L (137-145); Total Protein 7.9 g/dL (6.3-8.2)
[2025-01-31] MEDS: PANTOPRAZOLE 80 MG in SODIUM CHLORIDE 0.9% 100 ML 400 MG IV (09:05)
[2025-01-31] MEDS: OCTREOTIDE 500 MCG in SODIUM CHLORIDE 0.9% 100 ML 10.1 MCG IV (09:05)
[2025-01-31] MEDS: OCTREOTIDE 100 MCG/ML VIAL 50 MCG IV (09:06)
--- NOTE | 2025-01-31 09:20 | PC.NURSE ---
pt was given pain meds. o2 sat started to drop to low 80s. He was placed on 2L NC. 02 saturation came back up to 98%. RN giving meds at bedside aware.
[2025-01-31] MEDS: METOCLOPRAMIDE 10 MG/2 ML INJ IV (10:35)
[2025-01-31] MEDS: TRANEXAMIC ACID 1,000 MG in SODIUM CHLORIDE 0.9% 100 ML 200 MG IV (10:40)
--- NOTE | 2025-01-31 10:54 | PC.NURSE ---
pt to br in [place]c per pt request after reccomendation for commode or urinal. pt stands readily and sits into wc without assistance. denies dizziness or nausea. when pt in br pt has a dark brown emesis into toilet. provider aware. pt denying emesis
--- NOTE | 2025-01-31 12:55 | PC.NURSE ---
pablo lewis rn at [facility] initially declines acceptance of report of patient stating she needs to speak with her charge nurse and dr regarding potential change of pt room assignment to another floor. states she will call back.
--- NOTE | 2025-01-31 12:58 | PC.NURSE ---
rene recd from derek at [facility] reporting that they have consulted with their provider and pt will be accepted by pablo to room 3003. derek asks if we can give medication for lowering bp prior to transport.
--- NOTE | 2025-01-31 13:02 | PC.NURSE ---
spoke with baylee regarding derek request for bp meds prior to transport. provider declines states she prefers pt to be hypertensive and provider aware of current vital signs prior to transport.
== END 2025-01-31 13:00 | disposition short-term general hospital (02) ==
PROVIDERS: Emergency Medicine; Emergency Provider Emergency Medicine; PCP Family Medicine
DX: I85.01 Esophageal varices with bleeding (principal); M54.50 Low back pain, unspecified; K52.9 Noninfective gastroenteritis and colitis, unspecified; K80.20 Calculus of gallbladder without cholecystitis without obstruction; I49.3 Ventricular premature depolarization; R00.0 Tachycardia, unspecified; I10 Essential (primary) hypertension
CPT/HCPCS: 36415; 74177; 76705; 80053; 81003; 83690; 85025; 85610; 85730; 86850; 86900; 86901; 93005; 96365; 96367; 96375; 96376; 99284; 99291; J0744; J1171; J2354; J2405; J2470; J2765; J3360; J7030; J7050; Q9967

== ENCOUNTER → 2025-03-07 12:22 | Outpatient (CLI) | payer OTHER, SELFPAY ==
[2025-03-07 12:51] LABS: Add Manual Diff / Slide Review NO; Hematocrit 35.9 % (41-53); Hemoglobin 12.1 g/dL (13.5-17.5); Lymphocytes Absolute Auto 1800 /uL (1100-4500); Mean Corpuscular HGB Conc 33.6 % (30-36); Mean Corpuscular Hemoglobin 30.3 PG (26-34); Mean Corpuscular Volume 90.2 fL (80-100); Platelet Count 140 X10^3/uL (150-400)
[2025-03-07 13:13] LABS: Alanine Aminotransferase 21 IU/L (<50); Albumin 4.5 g/dL (3.5-5.0); Albumin Globulin Ratio 1.2 (1.0-2.8); Alkaline Phosphatase 89 U/L (38-126); Blood Urea Nitrogen 21 mg/dL (9-20); Calcium 9.4 mg/dL (8.4-10.2); Carbon Dioxide 24 mmol/L (22-32); Chloride 109 mmol/L (98-107); Estimated Glomerular Filt Rate > 60 mL/min (>60); Globulin 3.9 g/dL (1.7-4.1); Glucose 113 mg/dL (70-99); HEMOLYSIS < 15 (0-50); Potassium 4.3 mmol/L (3.4-5.1); Sodium 142 mmol/L (137-145); Total Protein 8.4 g/dL (6.3-8.2)
== END ==
PROVIDERS: PCP Family Medicine; Referring Provider Family Medicine; Visit Provider Family Medicine
DX: I85.00 Esophageal varices without bleeding (principal); K76.6 Portal hypertension; K31.89 Other diseases of stomach and duodenum; K80.20 Calculus of gallbladder without cholecystitis without obstruction; K74.60 Unspecified cirrhosis of liver; R18.8 Other ascites; Z87.898 Personal history of other specified conditions
CPT/HCPCS: 36415; 80053; 82105; 85025